=== PATIENT | female | born 1955 | race Caucasian/White ===

== ENCOUNTER 2017-07-17 11:47 | Observation (INO) | payer OTHER ==
[2017-07-17] MEDS ORDERED: LIDOCAINE 1% 2 ML INJ ID PRN (11:56)
[2017-07-17] MEDS ORDERED: LR 1,000 ML IV ONE (11:56)
[2017-07-17] MEDS ORDERED: SCOPOLAMINE HYDROBROMIDE 1 MG/3 DAYS PATCH TD ONE (12:39)
[2017-07-17] MEDS ORDERED: MIDAZOLAM 2 MG/2 ML VIAL IVP ONE (12:39)
--- NOTE | 2017-07-17 12:41 | PDANEPAE ---
ANE History of Present Illness Patient presents for forehead malignant melanoma resection and sentinel node resection. ANE Past Medical History - Cardiovascular History Hx Hypertension: No Hx Arrhythmias: No Hx Chest Pain: No Hx Coronary Artery / Peripheral Vascular Disease: No Hx CHF / Valvular Disease: No Hx Palpitations: No - Pulmonary History Hx COPD: No Hx Asthma/Reactive Airway Disease: No Hx Recent Upper Respiratory Infection: No Hx Oxygen in Use at Home: No Hx Sleep Apnea: No Sleep Apnea Screening Result - Last Documented: Negative - Neurologic History Hx Cerebrovascular Accident: No Hx Seizures: No Hx Dementia: No - Endocrine History Hx Diabetes: No - Renal History Hx Renal Disorders: No - Liver History Hx Hepatic Disorders: Yes Hepatic History Comment: GALL STONES - Neurological & Psychiatric Hx Hx Neurological and Psychiatric Disorders: Yes Neurological / Psychiatric History Comment: DEPRESSION - Cancer History Hx Cancer: Yes Cancer History Comment: MELANOMA FACE. BASAL & SQUAMOUS CELL - Congenital Disorder History Hx Congenital Disorders: No - GI History Hx Gastrointestinal Disorders: No - Other Health History Other Health History: NEG - Chronic Pain History Chronic Pain: No - Surgical History Prior Surgeries: PARATHYROIDECTOMY ANE Review of Systems Review of Systems: - Exercise capacity METS (RN): 4 METS ANE Patient History - Allergies Allergies/Adverse Reactions: No Allergies [NKDA] Allergy (Verified 07/10/17 12:50) SKIN REDNESS - Home Medications Home medications: home medication list seen and reviewed Home Medications: Herbals/Supplements -Info Only 07/10/17 [Last Taken 07/09/17] Sertraline HCl 07/10/17 [Last Taken 07/17/17 08:00] - NPO status NPO Status: no food or drink >8 hours NPO Since - Liquids (Date): 07/17/17 NPO Since - Liquids (Time): 08:30 NPO Since - Solids (Date): 07/16/17 NPO Since - Solids (Time): 18:00 - Anes Hx Anes Hx: no prior problems - Smoking Hx Smoking Status: Never smoked - Family Anes Hx Family Hx Anesthesia Complications: NEG ANE Labs/Vital Signs - Vital Signs Blood Pressure: 144/73 Heart Rate: 58 Respiratory Rate: 16 O2 Sat (%): 95 Height: 165.1 cm Weight: 77.111 kg ANE Physical Exam - Airway Neck exam: FROM Mallampati Score: Class 2 - Pulmonary Pulmonary: no respiratory distress - Cardiovascular Cardiovascular: regular rate and rhythym - ASA Status ASA Status: II ANE Anesthesia Plan Anesthesia Plan: GA w LMA (rba discussed)
[2017-07-17] MEDS ORDERED: fentaNYL 100 MCG/2 ML INJ ONE ×3 (14:13→17:54)
[2017-07-17] MEDS ORDERED: PROPOFOL 200 MG/20 ML VIAL ONE ×2 (14:13→16:06)
[2017-07-17] MEDS ORDERED: ROCURONIUM 50 MG/5 ML VIAL ONE ×2 (14:13→15:14)
--- NOTE | 2017-07-17 14:14 | PDHPUP ---
History & Physical Update H&P update statement: This history and physical update is based on an assessment of the patient which was completed after admission or registration (within 24 hours), but prior to the surgery/procedure.
[2017-07-17] MEDS ORDERED: LIDOCAINE 2% 5 ML SDV ONE (14:15)
[2017-07-17] MEDS ORDERED: ceFAZolin 1 GM VIAL ONE ×2 (14:26)
[2017-07-17] MEDS ORDERED: ceFAZolin 2 GM/SWFI 2 GM/20 ML SYR IVP ONE (14:30)
[2017-07-17] MEDS ORDERED: DEXAMETHASONE 4 MG/ML VIAL ONE (14:51)
[2017-07-17] MEDS ORDERED: LIDO/EPI 2%** Not for Epidural 20 ML MDV ONE (14:52)
[2017-07-17] MEDS ORDERED: PHENYLEPHRINE HCL 100 MCG/ML SYR ONE (15:00)
[2017-07-17] MEDS ORDERED: SUGAMMADEX SODIUM 200 MG/2 ML VIAL IVP ONE ×2 (15:24→16:46)
[2017-07-17] MEDS ORDERED: HYDROmorphONE/DILAUDID 2 MG/ML INJ ONE (16:10)
[2017-07-17] MEDS ORDERED: BACITRACIN ZINC 14.2 GM OINTTUBE TP ONE (16:55)
[2017-07-17] MEDS ORDERED: NALOXONE HCL 0.4 MG/ML INJ IVP PRN (16:58)
[2017-07-17] MEDS ORDERED: ONDANSETRON 4 MG/2 ML VIAL IVP PRN (16:58)
[2017-07-17] MEDS ORDERED: OXYCODONE/APAP 5/325 TAB PO PRN ×2 (16:58→20:56)
[2017-07-17] MEDS ORDERED: fentaNYL 100 MCG/2 ML INJ IVP PRN (16:58)
[2017-07-17] MEDS ORDERED: HYDROCODONE/APAP 5/325 TAB PO PRN (16:58)
[2017-07-17] MEDS ORDERED: LR 500 ML IV PRN (16:58)
--- NOTE | 2017-07-17 17:04 | POSTOPPROG ---
Post Op Note Date of Operation: 07/17/17 Surgeon: Pablo Ruby Milling Machine Operator: Winston Jovel Anesthesiologist: DAGOBERTO Pre-op Diagnosis: RIght forehead malignant melanoma Post-op Diagnosis: Same Indication: skin cancer Procedure: Re-excision of melanoma with flap closure, sentinel node biopsy Findings: negative sentinel node Inf/Abcess present in the surg proc area at time of surgery?: No Depth: Deep Incisional (Fascial) EBL: 50-100 Total fluids administered: 1500ml Complications: none Specimen(s): 1. Right parotid tissue and lymph node 2. Right forehead melanoma reexcision with 1cm margins
--- NOTE | 2017-07-17 17:31 | POSTANESTH ---
Post Anesthetic Evaluation Cardiovascular Status: Normal, Stable Respiratory Status: Normal, Stable Level of Consciousness/Mental Status: Mildly Sleepy, Arousable Pain Control: Adequate, Prn Tx Ordered Nausea/Vomiting Control: Adequate, Prn Tx Ordered Complications Possibly Related to Anesthesia: None Noted
[2017-07-17] MEDS ORDERED: OXYCODONE/APAP 5/325 TAB ONE (18:05)
[2017-07-17] MEDS ORDERED: IBUPROFEN 600 MG TAB PO PRN (21:01)
[2017-07-17] MEDS ORDERED: ceFAZolin 2 GM/DEXTROSE 100 ML IV SCH ×2 (22:00)
[2017-07-17] MEDS: ceFAZolin 2 GM in D5W 100 ML IV SCH (22:23)
--- NOTE | 2017-07-18 03:13 | GOP ---
[f rep st] OPERATIVE REPORT DATE OF OPERATION: 07/17/2017 SURGEON: Pablo Ruby MD SURGERY SCHEDULER: Winston Jovel MD. ANESTHESIA: General. PREOPERATIVE DIAGNOSIS: Right forehead malignant melanoma. POSTOPERATIVE DIAGNOSIS: Right forehead malignant melanoma. PROCEDURE PERFORMED: 1. Right parotid sentinel node biopsy. 2. Facial nerve monitoring x1 hour. 3. Re-excision right forehead melanoma. FINDINGS: The sentinel node was found in the superficial lobe of the right parotid as expected. The gamma probe readings were over 1200 with a background of 90. The frozen section evaluation was nega tive for melanoma. The re-excision was done with 1 cm of margin in all directions, with a total size of the exit site of the re-excision circled 3 cm in diameter. SPECIMENS: 1. Right parotid gland tissue with a sentinel lymph node. 1. Right forehead melanoma. 2. ESTIMATED BLOOD LOSS: 50 mL. INDICATIONS: The patient is a 62-year-old woman who had a shave biopsy of a right forehead lesion wh ich proved to be a malignant melanoma 0.78 mm thick with positive deep and lateral margins. She pres ents for a sentinel node biopsy and wide re-excision with a flap reconstruction. DESCRIPTION OF PROCEDURE: The patient was taken from initially from the preoperative area down to [facility] where the injections were made for the radioactive probe. She was then brought back u p to the operating room where general anesthesia was induced. She was positioned, prepped, and drape d in the normal sterile fashion. An incision was marked along the right preauricular skin crease and infiltrated with 4 cc of 2% lidocaine with 1:100,000 epinephrine. The NIM monitor was then set up b y me using 4 channels, calibrated, and used through the 1st hour of the operation as a means of decre asing the risk of potential injury to the facial nerve. At this point, the patient was prepped and d raped in the normal sterile fashion. The preauricular incision was then made sharply. Dissection wa s carried down to this mass and a skin flap was raised over the parotid gland. The gamma probe was t hen used to gently sliding it over the surface of the parotid fascia. We were able to find a very hi gh reading and this spot was marked out. I then used meticulous dissection spreading through the lay ers of tissue and working my way down and around the hot area with a surrounding cuff of parotid tiss ue. Using the facial nerve probe intermittently, as a means to try and decrease a facial nerve injur y, I did not to my knowledge cause any injury to the facial nerve. Once this tissue was removed, it was sent to the pathologist. They did not see evidence of melanoma. The wound was packed during thi s period of time and attention was then turned to the re-excision. We marked out a circular re-excis ion area 1 cm of normal-appearing tissue around the melanoma. The skin was then sharply incised. St arting anteriorly, the deep plane was identified over the fascia in the region of the frontalis, and this tissue was elevated rotating around the superior margin and down to the inferior margin, and jus t below the inferior margin I was able to stimulate a branch of the facial nerve that was just inferi or to where we were resecting. At this point, the final resection was performed. There was 1 small arterial branch that was tied off with 3-0 Vicryl. The tissue was then oriented for the pathologist with 1 short stitch at the superior forehead margin, 2 short stitches at the anterior eyebrow margin, 1 long stitch at the inferior parotid margin, and 2 long stitches at the posterior hair margin. A p hotograph of this was taken with no identifying visual identifiers on the patient, in case the final pathology showed positive margins and we need to return to the operating room. At this point, Dr. Kenneth montague proceeded with his flap reconstruction of the wound, and I then closed the preauricular incisio n using interrupted 4-0 Monocryl through the subcutaneous tissues and a running 5-0 fast-absorbing gu t to the skin. Once Dr. Jovel had finished with his reconstructive portion of the procedure, which he will dictate as a separate operation, a dressing was then placed to put a little bit of pressure in the cheek are a, but care was taken not to put any pressure on the actual flap. The patient was then extubated, an d taken to postop care unit in stable condition having tolerated the procedure well. COMPLICATIONS: None. /[id number]/MODL
[2017-07-18] MEDS: ceFAZolin 2 GM in D5W 100 ML IV SCH (05:25)
[2017-07-18 08:41] VITALS: BP 90/58; PULSE 62; RESP 20; TEMP 98.4; O2SAT 95
--- NOTE | 2017-07-18 11:50 | SOAPPROG ---
SOAP Progress Note Assessment/Plan: Assessment: 62 year old female POD 1 s/p re-excision of melanoma with flap closure. Doing well. Dressing replaced. - Prescription for percocet given - Follow-up next Monday for suture removal - Patient can remove dressing at home tomorrow 07/18/17 11:47 07/18/17 11:49 Subjective: 62 year old female POD 1 s/p re-excision melanoma with flap closure. Doing well. Pain under control. Objective: Vital Signs Temp Pulse Resp BP Pulse Ox 36.9 C 62 20 90/58 L 95 07/18/17 08:38 07/18/17 08:38 07/18/17 08:38 07/18/17 08:38 07/18/17 08:38 07/17/17 07/18/17 07/19/17 05:59 05:59 05:59 Intake Total 2175 Output Total 100 Balance 2075 Dressing removed -- incision clean/dry/intact Mild weakness of movement just above right eyebrow Dressing replaced ICD10 Worksheet Patient Problems: Problems Problem Status Onset Melanoma Acute - ICD10 Problem Qualifiers (1) Melanoma
--- NOTE | 2017-07-19 02:55 | GOP ---
[f rep st] OPERATIVE REPORT DATE OF OPERATION: 07/17/2017 SURGEON: Winston Jovel MD HEAD REFRIGERATION ENGINEER: Pablo Ruby MD. ANESTHESIA: General. PREOPERATIVE DIAGNOSIS: Right forehead/anglican melanoma. POSTOPERATIVE DIAGNOSIS: Right forehead/anglican melanoma. PROCEDURE PERFORMED: Flap reconstruction of nasal skin cancer/melanoma defect. FINDINGS: SPECIMENS: No added specimens for pathology. ESTIMATED BLOOD LOSS: Less than 100 mL. INDICATIONS: Right forehead/anglican melanoma. DESCRIPTION OF PROCEDURE: HISTORY: That of a 62-year-old who has a right anglican/forehead melanoma, which I assisted Dr. Alexis rodríguez with primary excision and sentinel node biopsy. [place] node biopsy was negative. After primary excision, we proceeded with reconstruction. CASE REPORT: After primary excision of the right anglican/forehead melanoma and sentinel biopsy, The t issue was evaluated and planning for a flap reconstruction was performed. I decided to try a closure which would advance the anglican and superolateral cheek skin rotated and advanced into the defect. We planned on back cuts from the melanoma defect, which was 3 x 3.5 cm circular-type defect in the later al portion of the forehead and in the anglican area. From this defect, we planned on back cuts that wou ld extend just behind the hairline as well as just above the brow in a curvilinear fashion with Burow 's triangles removed at the base of the advancement incisions to advance the flap superomedially into the defect. We started with undermining of the entire defect, and after further discussion, felt thi s was the appropriate flap reconstruction. A 15-blade was then used to make back cuts from the tangen t of the defect superiorly and inferiorly in a curvilinear fashion as described in the hairline as we ll as just above the brow down through the dermis into the subdermal plane. Deep subcutaneous flap wa s then raised overlying the SMAS and fashioned in this region. Nerve monitoring was performed to ensu re nerve integrity, which was maintained throughout. Then had Burow's triangles removed at the base o n each side, and after wide undermining and elevation, was advanced and rotated into the defect under minimal tension. Monocryl 4-0 suture was used to close the deep subcutaneous tissue to the most medi al aspect of the defect to the flap to help tack it in place, and 4-0 Prolene was used to close the s kin in this area to help hold the flap in place while the remaining closure was performed along both sides of the flap. Monocryl 4-0 was then used in interrupted fashion to close the deep subcutaneous f lap to the deep subcutaneous tissue superiorly and inferiorly along the advanced areas with advanceme nt through the Burow's triangles and closure in this region as well. Then, 4-0 and 5-0 Prolene suture s in interrupted fashion were then used to close the skin portion of the flap once it was advanced in to place with minimal tension noted. Once this was done, the flap was noted to sit well within the de fect with no significant deformity of the brow or lateral [place] region, and minimal tension noted i n the superior cheek and anglican region. The hairline appeared to have a normal contour to it at the c onclusion of the procedure, and the flap was cleaned after inset and being sewn in place, was clean a nd dressed with bacitracin ointment. The patient was then awakened and extubated uneventfully and bro ught to the recovery room in stable condition where she was expected to do well postoperatively. The patient tolerated the procedure well. /[id number]/MODL
[2017-07-19] MEDS ORDERED: BUPIVACAINE 0.5% 30 ML SDV ONE (08:21)
== END 2017-07-18 09:21 | disposition home or self-care (01) ==
LOC: FSGY 11:47 → F1N 17:04
PROVIDERS: ADMIT Otolaryngology; ATTEND Otolaryngology
PROC: 0JX10ZB Transfer Face Subcutaneous Tissue and Fascia with Skin and Subcutaneous Tissue, Open Approach (ICD-10-PCS; principal; 2017-07-17 14:15)
PROC: 0HB1XZZ Excision of Face Skin, External Approach (ICD-10-PCS; 2017-07-17 14:15)
PROC: 07B00ZX Excision of Head Lymphatic, Open Approach, Diagnostic (ICD-10-PCS; 2017-07-17 14:15)
DX: C43.39 Malignant melanoma of other parts of face (principal)
CPT/HCPCS: 11646; 15650; 38500; 78195; A9520; G0378; J0690; J1100; J1170; J2250; J2370; J2704; J3010

== ENCOUNTER → 2017-09-07 | Outpatient (CLI) | payer OTHER | LOC: FIMAGING 14:52 | PROVIDERS: ATTEND Family Medicine | DX: Z12.31 Encounter for screening mammogram for malignant neoplasm of breast (principal) | CPT/HCPCS: G0202 ==

== ENCOUNTER 2018-06-11 08:44 | Emergency (ER) | payer OTHER ==
--- NOTE | 2018-06-11 09:12 | EDPHY ---
H & P Time Seen by Provider: 06/11/18 09:00 HPI/ROS: CHIEF COMPLAINT: Left-sided chest pain after injury HISTORY OF PRESENT ILLNESS: Patient was walking this past Monday with high heels and fell on her purse which had her cellphone in it. Worsening left- sided chest pain at this point of impact since then, 05/04 which does not radiate but worse with movement and inspiration. Not associated with cough or shortness of breath or abdominal pain. No other injuries. REVIEW OF SYSTEMS: Eye: no change in vision ENT: no sore throat Cardiac: HPI Pulmonary: HPI Abdomen: no vomiting, diarrhea, abdominal pain Musculoskeletal: No neck or back pain, she had some left elbow and knee pain but that is all better. Skin: no rash Neuro: no headache Constitutional: no fever : no urinary symptoms A comprehensive 10 point review of systems is otherwise negative aside from elements mentioned in the history of present illness. PAST MEDICAL HISTORY: Negative Social history: Primary care doctor Jian Diaz General Appearance: Alert and conversant, cooperative. Eyes: No scleral icterus. ENT, Mouth: Normal mucous membranes. Respiratory: Slight splinting but breath sounds are equal and no rhonchi or crepitus. Cardiovascular: Regular rate and rhythm. Gastrointestinal: Abdomen is soft and non tender. Specifically nontender over liver and spleen. Neurological: Alert, face symmetric, normal motor and sensory in extremities. Skin: Warm and dry, no rashes. Musculoskeletal: No midline spinal tenderness. Good range of motion of the left elbow. Knees are not swollen. Ambulatory. Psychiatric: Not agitated. Emergency Department course/MDM: Chest x-ray ordered. 1034: Results discussed, patient has oxycodone at home which I think is reasonable for her to use if she has pain at night. Declined pain medication here. Warned she may have symptoms for several weeks or longer even if just a chest contusion. Also warned she could have an occult rib fracture which would be treated the same at this point as a chest wall contusion. Smoking Status: Never smoked Constitutional: Initial Vital Signs Temperature (C) 37.2 C 06/11/18 08:47 Heart Rate 72 06/11/18 08:47 Respiratory Rate 16 06/11/18 08:47 Blood Pressure 124/68 H 06/11/18 08:47 O2 Sat (%) 94 06/11/18 08:47 O2 Delivery Mode Room Air Allergies/Adverse Reactions: No Allergies [NKDA] Allergy (Verified 06/11/18 08:46) SKIN REDNESS Home Medications: Medication Instructions Recorded Cholecalciferol Vit D3 [Vitamin D3 50,000 unit PO [place] 07/17/17 (*)] Sertraline HCl 150 mg PO DAILY 07/17/17 MDM/Departure - MDM Imaging Results: Imaging Impressions Chest X-Ray 06/11/18 08:57 Impression: No acute findings in the chest. - Depart Disposition: Home, Routine, Self-Care Clinical Impression: Contusion of chest wall Qualifiers: Encounter type: initial encounter Laterality: left Qualified Code(s): S20.212A - Contusion of left front wall of thorax, initial encounter Condition: Good Instructions: Blunt Chest Trauma (ED) Referrals: Braxton Diaz MD [Primary Care Provider] - As per Instructions
[2018-06-11 10:35] VITALS: BP 125/74
== END 2018-06-11 10:42 | disposition home or self-care (01) ==
DX: S20.212A Contusion of left front wall of thorax, initial encounter (principal); W19.XXXA Unspecified fall, initial encounter; Y93.01 Activity, walking, marching and hiking; Y92.9 Unspecified place or not applicable; Y99.9 Unspecified external cause status

== ENCOUNTER → 2018-10-10 | Outpatient (CLI) | payer OTHER | LOC: FIMAGING 13:16 | PROVIDERS: ATTEND Family Medicine | DX: Z12.31 Encounter for screening mammogram for malignant neoplasm of breast (principal) ==